=== PATIENT | female | born 1990 | race Caucasian/White ===

== ENCOUNTER 2016-10-06 15:05 | Emergency (ER) | payer OTHER ==
--- NOTE | 2016-10-06 15:14 | ED Physician Documentation ---
Sore Throat/Dental Pain - HISTORIAN Historian: patient - HPI Chief Complaint: Dental Pain Onset: days ago (started about 6 days ago) Context: Dental Caries Associated Symptoms: denies: fever, chills, other (mild diaphoresis) Worsened By: heat, cold Further Comments: yes (Has had some problems dental pain associated with right upper molar. Has had problems wit it in the past. Has dental appointment Wednesday. Having more pain and swelling.) - ROS CONST: no problems CVS/RESP: denies: chest pain, shortness of breath NEURO/PSYCH: none - PAST HX Past History: none Other History: none Allergies/Adverse Reactions: Allergies Allergy/AdvReac Type Severity Reaction Status Date / Time bees Allergy Intermediate Uncoded 10/06/16 15:24 Home Medications: Ambulatory Orders Medication Instructions Recorded Epinephrine [Epipen] 0.3 mg IM PRN #2 ml 12/06/12 Clindamycin HCl [Cleocin] 300 mg PO QID #40 capsule 10/06/16 Hydrocodone/Acetaminophen 1 each PO Q6 PRN #10 tablet 10/06/16 [Hydrocodon-Acetaminophen 5-325] - SOCIAL HX Smoking History: greater than 1 pack/day (1 1/2 pps) Alcohol Use: none Drug Use: none - FAMILY HX Family History: No - VITAL SIGNS Vital Signs: Vital Signs Temp Pulse Resp BP Pulse Ox 141/76 02/25/14 13:30 - REVIEWED ASSESSMENTS Nursing Assessment Reviewed: Yes Dental Pain Physical Exam - EXAM General Appearance: no acute distress, alert Mouth/Throat: lips nml, gums nml, pharynx nml, voice nml, dental tenderness, gum swelling around teeth (right upper gum), widespread dental decay Ear/Nose: nml inspection Respiratory: no resp. distress, breath sounds nml. No: respiratory distress, wheezes, rales, rhonchi CVS: reg. rate & rhythm Skin: warm/dry Neuro/Psych: No: weakness, numbness Discharge Clincal Impression: Pain due to dental caries Prescriptions: Clindamycin HCl [Cleocin] 300 mg PO QID #40 capsule Hydrocodone/Acetaminophen [Hydrocodon-Acetaminophen 5-325] 1 each PO Q6 PRN #10 tablet PRN Reason: Pain Referrals: Randi Broderick MD [Primary Care Provider] - 2 Days Additional Instructions: Rinse mouth with slat water, use OTC analgesic such as Aleve 220mg two tablets twice a day. Take Hydrocodone for break through pain. If you need further pain medictions to contact your primary care provider. Take clindamycin as directed. Home Medications: Ambulatory Orders Epinephrine [Epipen] 0.3 mg IM PRN #2 ml 12/06/12 Clindamycin HCl [Cleocin] 300 mg PO QID #40 capsule 10/06/16 Hydrocodone/Acetaminophen [Hydrocodon-Acetaminophen 5-325] 1 each PO Q6 PRN #10 tablet 10/06/16 Condition: Stable Disposition: 01 HOME, SELF-CARE Decision to Admit: NO Date of Decison to Admit: 10/06/16 Decision Time: 15:30
[2016-10-06] MEDS ORDERED: KETOROLAC TROMETHAMINE 60 MG/2 ML VIAL IM ONE (15:21)
[2016-10-06 15:30] VITALS: BP 153/94
== END 2016-10-06 16:00 | disposition home or self-care (01) ==
LOC: ED 15:05
DX: K02.9 Dental caries, unspecified (principal)
CPT/HCPCS: 96372; 99283; J1885

== ENCOUNTER 2017-10-06 13:35 | Emergency (ER) | payer OTHER ==
--- NOTE | 2017-10-06 13:44 | ED Physician Documentation ---
Sore Throat/Dental Pain - HISTORIAN Historian: patient - HPI Stated Complaint: sore throat Chief Complaint: Sore Throat Onset: hours (8) Context: Possible Infection Associated Symptoms: sore throat, moderate, unable to swallow Worsened By: nothing Further Comments: yes (She states symptoms started this am with sore throat and half way through work she notes she could hardly swallow. Denies a fever. She did take Ibuprofen with some water at lunch. She is able to swallow her secretions. No other complaints) - ROS CONST: no problems - PAST HX Past History: none Other History: none Immunizations: UTD Allergies/Adverse Reactions: Allergies Allergy/AdvReac Type Severity Reaction Status Date / Time bees Allergy Intermediate Uncoded 10/06/17 14:07 Home Medications: Ambulatory Orders Medication Instructions Recorded NK [NK] 10/06/17 - SOCIAL HX Smoking History: non-smoker Alcohol Use: none Drug Use: none - FAMILY HX Family History: No - VITAL SIGNS Vital Signs: Vital Signs Temp Pulse Resp BP Pulse Ox 97.3 F L 103 H 17 138/70 96 10/06/17 14:19 10/06/17 14:19 10/06/17 14:19 10/06/17 14:19 10/06/17 14:19 - REVIEWED ASSESSMENTS Nursing Assessment Reviewed: Yes Vitals Reviewed: Yes ED Results Lab/Radiology - Lab Results Lab Results: Lab Results 10/06/17 10/06/17 10/06/17 14:01 14:01 14:00 WBC 14.30 K/ul H K/ul (4.00-12.00) RBC 4.87 M/ul M/ul (3.90-5.20) Hgb 14.3 g/dL g/dL (12.0-16.0) Hct 41.4 % % (34.5-46.5) MCV 84.9 fl fl (80.0-100.0) MCH 29.4 pg pg (28.0-34.0) MCHC 34.6 g/dL g/dL (30.0-36.0) RDW 12.8 % % (11.3-14.3) Plt Count 320 K/mm3 K/mm3 (130-400) Neut % (Auto) 85.5 % H % (39.0-79.0) Lymph % (Auto) 8.5 % L % (16.0-50.0) [place] % (Auto) 2.9 % % (0.0-11.0) Eos % (Auto) 2.3 % % (0.0-6.8) Baso % (Auto) 0.4 (0.0-1.5) Neut # (Auto) 12.2 # k/uL H # k/uL (1.4-7.7) Lymph # (Auto) 1.2 # k/uL # k/uL (0.6-4.0) [place] # (Auto) 0.4 # k/uL # k/uL (0.0-0.9) Eos # (Auto) 0.3 # k/uL # k/uL (0.0-0.6) Baso # (Auto) 0.0 # k/uL # k/uL (0.0-0.5) Reactive Lymphs % 0.5 % % (0.0-5.0) Reactive Lymphs # 0.1 # k/uL # k/uL (0.0-0.8) Sodium 143 mmol/L mmol/L (136-145) Potassium 3.7 mmol/L mmol/L (3.5-5.1) Chloride 103 mmol/L mmol/L (98-107) Carbon Dioxide 24 mmol/L mmol/L (22-30) BUN 5 mg/dL L mg/dL (7-17) Creatinine 0.70 mg/dL mg/dL (0.52-1.04) Estimated Creat Clear 201 Est GFR ( Amer) > 60 (60 - ) Est GFR (Non-Af Amer) > 60 (60 - ) Glucose 94 mg/dL mg/dL (74-106) Calcium 9.4 mg/dL mg/dL (8.4-10.2) Total Bilirubin 1.1 mg/dL mg/dL (0.2-1.3) AST 15 U/L U/L (15-46) ALT 20 U/L U/L (13-69) Alkaline Phosphatase 67 U/L U/L (38-126) Total Protein 7.7 g/dL g/dL (6.3-8.2) Albumin 4.5 g/dL g/dL (3.5-5.0) Group A Strep Screen Positive H (NEGATIVE) - Orders Orders: ED Orders Category Date Time Status CBC/PLATELET/DIFF Stat Lab 10/06/17 14:01 Completed CMP Stat Lab 10/06/17 14:01 Completed GRP A STREP SCREEN Stat Lab 10/06/17 14:00 Completed Penicillin G Benzathine [Bicillin l-A] Med 10/06/17 14:04 Discontinued 1,200,000 units IM NOW ONE methylPREDNISolone ACETATE [Depo-Medrol] Med 10/06/17 14:05 Discontinued 80 mg IM NOW ONE Sore throat Physical Exam - EXAM General Appearance: no acute distress, alert Head/Neck: head nml inspection, trachea midline, no lymphadenopathy, thyroid nml Eyes: eyes nml inspection, PERRL Mouth/Throat: lips nml, gums nml, no drooling, no air way problems, pharyngeal erythema, tonsillar exudate. No: muffled voice Ear/Nose: nml inspection, TM erythema Respiratory: no resp. distress, breath sounds nml, respiratory distress CVS: reg. rate & rhythm, heart sounds nml Abdomen: soft, normal bowel sounds Extremities: non-tender, nml ROM Skin: warm/dry, normal color Neuro/Psych: oriented x3, mood/affect nml Discharge Clincal Impression: Strep pharyngitis Referrals: Randi Broderick MD [Primary Care Provider] - 2 Days Comments: 1. Follow up with PCP in 1-2 days 2. Return for any other concerns to ER Condition: Stable Disposition: 01 HOME, SELF-CARE Decision to Admit: NO Date of Decison to Admit: 10/06/17 Decision Time: 15:00
[2017-10-06 14:06] VITALS: BP 138/70
[2017-10-06 14:17] LABS: BASOPHILS % 0.4 (0.0-1.5); EOSINOPHILS % 2.3 % (0.0-6.8); MEAN CORPUSCULAR HEMOGLOBIN 29.4 pg (28.0-34.0); MEAN CORPUSCULAR VOLUME 84.9 fl (80.0-100.0); MONOCYTES % 2.9 % (0.0-11.0); NEUTROPHILS # 12.2 # k/uL (1.4-7.7)
[2017-10-06] MEDS: PENICILLIN G BENZATHINE 1,200,000 UNITS INJ IM ONE (14:17)
[2017-10-06] MEDS: methylPREDNISolone ACETATE 80 MG/ML VIAL IM ONE (14:18)
[2017-10-06 14:29] LABS: eGFR (African) > 60; eGFR (Non-African) > 60
== END 2017-10-06 14:19 | disposition home or self-care (01) ==
LOC: ED 13:35
DX: J02.0 Streptococcal pharyngitis (principal)
CPT/HCPCS: 80053; 85025; 87880; J0561; J1040; 96372; 99283